=== PATIENT | female | born 1945 | race Two or more races ===

== ENCOUNTER 2020-09-04 16:04 | Emergency (ER) | payer OTHER ==
[~2020-09-04] VITALS: Ht 154.9 cm; Wt 65.8 kg
--- NOTE | 2020-09-04 16:30 | NUR ---
[id number], picked up at [facility], c/o left rib pain s/p fall 1 1/2 weeks ago, 10/10 pain scale. On room air, breathing evenly and unlabored. connected to the monitor and pulse ox. Kept comfortable, will continue to monitor accordingly.
--- NOTE | 2020-09-04 16:45 | NUR ---
IV Access initiated and blood drawned and sent to lab.
[2020-09-04 17:44] LABS: CARBON DIOXIDE 27 mmol/L (21-32); CHLORIDE 106 mmol/L (98-107); CREATININE 0.7 mg/dL (0.6-1.3); GLUCOSE 93 mg/dL (74-106); POTASSIUM 4.1 mmol/L (3.5-5.1); SODIUM SERUM 145 mmol/L (136-145); UREA NITROGEN, BLOOD 18 mg/dL (7-18)
[2020-09-04 18:02] LABS: BASOPHILS % (AUTO) 0.2 % (0.0-2.0); EOSINOPHILS % (AUTO) 0.7 % (0.0-6.0); HEMATOCRIT 42 % (33-45); HEMOGLOBIN 13.4 g/dL (11.5-14.8); LYMPHOCYTES # (AUTO) 0.5 /CMM (0.8-4.8); LYMPHOCYTES % (AUTO) 5.1 % (20.0-44.0); MEAN CORPUSCULAR HGB CONC 32 g/dl (31.0-36.0); MEAN CORPUSCULAR VOLUME 95 fL (82-100); MONOCYTES # (AUTO) 0.6 /CMM (0.1-1.30); MONOCYTES % (AUTO) 5.8 % (2.0-12.0); NEUTROPHILS # (AUTO) 8.8 /CMM (1.8-8.9); NEUTROPHILS % (AUTO) 88.2 % (43.0-81.0); PLATELET COUNT (AUTO) 232 /CMM (150-450); RED BLOOD CELL COUNT(AUTO) 4.39 MIL/uL (4.0-5.2)
[2020-09-04] MEDS ORDERED: IOHEXOL-350 100 ML VIAL IV ONE (18:47)
[2020-09-04] MEDS ORDERED: IV NS 0.9% 250 ML IV ONE (18:47)
--- NOTE | 2020-09-04 19:50 | NUR ---
wheeled patient to ct accompanied by harley
--- NOTE | 2020-09-04 20:00 | NUR ---
Patient came back from ct
[2020-09-04 21:11] VITALS: BP 121/88
--- NOTE | 2020-09-04 21:11 | NUR ---
Patient discharged to home in stable condition. Written and verbal after care instructions given. Patient verbalizes understanding of instruction.IV removed. Catheter intact and site benign. Pressure and 4x4 applied to site. No bleeding noted.
== END 2020-09-04 21:11 | disposition home or self-care (01) ==
LOC: ER 16:11
DX: R07.81 Pleurodynia (principal); R06.00 Dyspnea, unspecified; I10 Essential (primary) hypertension; J45.909 Unspecified asthma, uncomplicated; Z90.5 Acquired absence of kidney; Z98.890 Other specified postprocedural states; Z88.6 Allergy status to analgesic agent
CPT/HCPCS: 36415; 71045; 71275; 80048; 80307; 80320; 84484; 85025; 85378; 93005 ×2; 99284; J7050; Q9967; G0480

== ENCOUNTER 2021-11-07 09:18 | Emergency (ER) | payer OTHER ==
[~2021-11-07] VITALS: Ht 152.4 cm; Wt 58.5 kg
--- NOTE | 2021-11-07 09:21 | NUR ---
TO ER BED 3, ORALIA FROM THE STREET C/O SUBSTERNAL CHEST PAIN THAT RADIATES TO NECK AND L ARM P/S 07/08, NO RELIEF FROM NITRO, WAS JUST DC FROM [facility] SAME REASON, AAOX3, BREATHING EVEN AND NON LABORED, CONNECTED TO MONITOR, AWAITING MD ORDERS
[2021-11-07 10:24] LABS: BASOPHILS % (AUTO) 0.4 % (0.0-2.0); EOSINOPHILS % (AUTO) 1.8 % (0.0-6.0); HEMATOCRIT 39 % (33-45); HEMOGLOBIN 12.6 g/dL (11.5-14.8); LYMPHOCYTES # (AUTO) 1.5 K/uL (0.8-4.8); LYMPHOCYTES % (AUTO) 19.1 % (20.0-44.0); MEAN CORPUSCULAR HGB CONC 32 g/dl (31.0-36.0); MEAN CORPUSCULAR VOLUME 89 fL (82-100); MONOCYTES # (AUTO) 0.6 K/uL (0.1-1.30); MONOCYTES % (AUTO) 7.5 % (2.0-12.0); NEUTROPHILS # (AUTO) 5.4 K/uL (1.8-8.9); NEUTROPHILS % (AUTO) 71.2 % (43.0-81.0); PLATELET COUNT (AUTO) 208 K/uL (150-450); RED BLOOD CELL COUNT(AUTO) 4.39 MIL/uL (4.0-5.2); WHITE BLOOD COUNT (AUTO) 7.7 K/uL (4.3-11.0)
[2021-11-07] MEDS ORDERED: ONDANSETRON HCL/PF 4 MG/2 ML VIAL ONE (10:26)
[2021-11-07] MEDS ORDERED: MORPHINE SULFATE INJ 2 MG/ML DISP.SYRIN ONE (10:27)
[2021-11-07] MEDS ORDERED: ONDANSETRON HCL/PF 4 MG/2 ML VIAL IV ONE (10:30)
[2021-11-07] MEDS ORDERED: MORPHINE SULFATE INJ 2 MG/ML DISP.SYRIN IV ONE (10:30)
[2021-11-07 10:41] LABS: CALCIUM, SERUM 9.4 mg/dL (8.5-10.1); CARBON DIOXIDE 24 mmol/L (21-32); CHLORIDE 106 mmol/L (98-107); CREATININE 0.8 mg/dL (0.6-1.3); GLUCOSE 90 mg/dL (74-106); POTASSIUM 3.9 mmol/L (3.5-5.1); SODIUM SERUM 139 mmol/L (136-145); UREA NITROGEN, BLOOD 23 mg/dL (7-18)
--- NOTE | 2021-11-07 11:25 | NUR ---
COVID SWAB DONE AND SENT TO LAB
[2021-11-07] MEDS ORDERED: ESCI5TAB PO (11:30)
[2021-11-07] MEDS ORDERED: GABA-532 PO (11:30)
[2021-11-07] MEDS ORDERED: ZOLP5TAB8 PO (11:30)
[2021-11-07] MEDS ORDERED: AMLO-212 PO (11:30)
[2021-11-07] MEDS ORDERED: BACL10TA PO (11:30)
[2021-11-07] MEDS ORDERED: NITR0.4T48 PO (11:30)
[2021-11-07] MEDS ORDERED: DOCU100C36 PO (11:30)
[2021-11-07] MEDS ORDERED: ATOR10TA PO (11:30)
[2021-11-07] MEDS ORDERED: TRAM50TA2 PO (11:30)
--- NOTE | 2021-11-07 12:33 | NUR ---
CHIDI, CM [phone].
--- NOTE | 2021-11-07 13:23 | NUR ---
CHIDI [phone] FAXED OVER CLINICALS FOR ER .
--- NOTE | 2021-11-07 14:04 | NUR ---
CALLED [employer].
--- NOTE | 2021-11-07 14:53 | NUR ---
Pt. expressed she wants to go to a [facility] and is willing to pay for it. SW reached out to Rubi for placement and left VM [[phone]]. Will update once she calls back.
[2021-11-07] MEDS ORDERED: HYDROCODONE/APAP 5/325MG TABLET PO ONE (15:00)
[2021-11-07] MEDS ORDERED: HYDROCODONE/APAP 5/325MG TABLET ONE (15:07)
--- NOTE | 2021-11-07 15:16 | NUR ---
Found placement for Pt. Mack from [facility] [[phone]] will call back with information and ETA.
--- NOTE | 2021-11-07 15:54 | NUR ---
Pt. accepted to [facility] [[address] [place] [address], Mia Post Partum Nurse]. ETA: [phone]
--- NOTE | 2021-11-07 18:13 | NUR ---
IV removed. Catheter intact and site benign. Pressure and 4x4 applied to site. No bleeding noted.
--- NOTE | 2021-11-07 18:13 | NUR ---
Patient discharged in stable condition. Written and verbal after care instructions given. Patient verbalizes understanding of instruction.
[2021-11-07 18:18] VITALS: BP 127/79
== END 2021-11-07 18:18 ==
LOC: ER 09:26
DX: R07.9 Chest pain, unspecified (principal); R00.0 Tachycardia, unspecified; F17.210 Nicotine dependence, cigarettes, uncomplicated; I25.10 Atherosclerotic heart disease of native coronary artery without angina pectoris; Z95.5 Presence of coronary angioplasty implant and graft; J45.909 Unspecified asthma, uncomplicated; I10 Essential (primary) hypertension; Z20.822 Contact with and (suspected) exposure to COVID-19
CPT/HCPCS: 36415; 71045; 80048; 84484 ×2; 85025; 87426; 93005; 96374; 96375; 99285; J2270; J2405; C9803

== ENCOUNTER 2022-03-13 00:14 | Inpatient (IN) | payer OTHER ==
[~2022-03-13] VITALS: Ht 152.4 cm; Wt 61.7 kg
[~2022-03-13 00:14] MED LIST: AMLO-212 PO; ATOR10TA PO; BACL10TA PO; DOCU100C36 PO; ESCI5TAB PO; GABA-532 PO; NITR0.4T48 PO; TRAM50TA2 PO; ZOLP5TAB8 PO
[2022-03-13 00:54] LABS: BILIRUBIN,URINE NEGATIVE (NEGATIVE); COLOR,URINE YELLOW (YELLOW); LEUKOCYTE ESTERASE ,URINE SMALL (NEGATIVE); NITRITE, URINE NEGATIVE (NEGATIVE); PROTEIN,URINE 30 mg/dl (NEGATIVE); UGLUCOSE NEGATIVE (NEGATIVE); UROBILINOGEN,URINE 0.2 EU/dL (0.2)
[2022-03-13 01:10] LABS: BASOPHILS % (AUTO) 0.5 % (0.0-2.0); EOSINOPHILS % (AUTO) 1.6 % (0.0-6.0); HEMATOCRIT 37 % (33-45); HEMOGLOBIN 11.9 g/dL (11.5-14.8); LYMPHOCYTES # (AUTO) 1.9 K/uL (0.8-4.8); MEAN CORPUSCULAR HGB CONC 32 g/dl (31.0-36.0); MEAN CORPUSCULAR VOLUME 91 fL (82-100); MONOCYTES # (AUTO) 0.8 K/uL (0.1-1.30); MONOCYTES % (AUTO) 9.6 % (2.0-12.0); NEUTROPHILS # (AUTO) 5.6 K/uL (1.8-8.9); NEUTROPHILS % (AUTO) 66.3 % (43.0-81.0); PLATELET COUNT (AUTO) 205 K/uL (150-450); RED BLOOD CELL COUNT(AUTO) 4.02 MIL/uL (4.0-5.2); WHITE BLOOD COUNT (AUTO) 8.5 K/uL (4.3-11.0)
[2022-03-13 01:22] LABS: CARBON DIOXIDE 29 mmol/L (21-32); CHLORIDE 107 mmol/L (98-107); CREATININE 0.8 mg/dL (0.6-1.3); GLUCOSE 93 mg/dL (74-106); SODIUM SERUM 142 mmol/L (136-145); UREA NITROGEN, BLOOD 22 mg/dL (7-18)
[2022-03-13 01:30] LABS: ALANINE AMINOTRANSFERASE 17 U/L (12-78); ALBUMIN 3.9 g/dL (3.4-5.0); ALKALINE PHOSPHATASE 96 U/L (46-116); ASPARTATE AMINOTRANSFERASE 15 U/L (15-37); BILIRUBIN,DIRECT 0.1 mg/dL (0.0-0.2); BILIRUBIN,TOTAL 0.2 mg/dL (0.2-1.0); TOTAL PROTEIN, SERUM 7.8 g/dL (6.4-8.2)
[2022-03-13 01:34] LABS: ACETAMINOPHEN 0 ug/ml (10-30); ALCOHOL, BLOOD < 3 mg/dL (0-0)
[2022-03-13] MEDS ORDERED: MORPHINE SULFATE IR 15 MG TABLET ONE (01:51)
[2022-03-13] MEDS ORDERED: MORPHINE SULFATE IR 15 MG TABLET PO ONE (02:00)
[2022-03-13] MEDS ORDERED: CEPHALEXIN MONOHYDRATE 500 MG CAPSULE PO ONE ×2 (04:00→04:10)
[2022-03-13 07:27] LABS: BACTERIA,URINE Few /HPF (None Seen)
--- NOTE | 2022-03-13 08:18 | NUR ---
Note undone in EDM - 03/13/22 at 0822 by SPEEDY THE PATIENT IS RECEIVED IN ER #[id number]. THE PATIENT IS ALERT AND ORIENTED X4. DENIES PAIN. IN ROOM AIR AND DENIES SOB. RESPIRATION REGULAR AND UNLABORED. THE PATIENT IS SERVED BREAKFAST. VERO FOOD WELL.
--- NOTE | 2022-03-13 08:22 | NUR ---
THE PATIENT IS RECEIVED IN ER #15. THE PATIENT IS ALERT AND ORIENTED X3. DENIES PAIN. IN ROOM AIR AND DENIES SOB. RESPIRATION REGULAR AND UNLABORED. THE PATIENT IS SERVED BREAKFAST. VERO FOOD WELL.
--- NOTE | 2022-03-13 08:33 | NUR ---
TYLENOL 650 MG PO ONCE PER LAW. THE ORDER IS READ BACK, VERIFIED. NOTED AND CARRIED OUT.
[2022-03-13] MEDS ORDERED: ACETAMINOPHEN 325 MG TABLET ONE (08:35)
--- NOTE | 2022-03-13 08:39 | NUR ---
THE PATIENT IS ADMINISTERED TYLENOL 650 MG PO FOR HEADACHE 12/06. WILL CONTINUE TO MONITOR THE PATIENT.
[2022-03-13] MEDS ORDERED: ACETAMINOPHEN 325 MG TABLET PO ONE (09:00)
--- NOTE | 2022-03-13 10:30 | NUR ---
SS consult: SS Consult requested for SI,HI, homelessness. The pt. is a 76-year-old female patient who came into ED due to: suicidal ideation & homicidal ideation per EMR. Upon SS consult, the pt. is Alert & Oriented x 4 and makes poor eye contact. The pt. appears disheveled with depressed mood & flat affect. Pt.'s speech is clear. Per pt. she states he is having thoughts of suicide with plan to "run in front of a moving train". Pt. states she has thoughts of HI. Per pt. she has auditory hallucinations telling her to hurt her children. Per pt. her children are all mostly in [place]. SW explored pt.'s living situation. Patient states she is experiencing homelessness for the past 5 years and she lives in an encampment in [facility] with other people and her needs are met there. Pt. stated, "they let me sleep in a tent and share food with me". SW provided resources for homelessness and pt. accepted them. SW explored pt.'s mental health Hx. Patient stated that she has been diagnosed with Schizophrenia. Per pt. she was prescribed some medication for her mental health but has been non-complaint with taking it. SW provided mental health resources. SW explored pt.'s drug & ETOH use. Pt. denies drug or alcohol use. Per pt. she is ambulatory and independent with all his ADL's. SW explored pt.'s support system. Pt. states he has no support system. Plan: Pt. will be assessed by soft work wrapper layer and examiner, Alina Goodwin [phone]. Pt. will be referred pt. psychiatric hospital for inpatient psychiatric treatment or possible admission to [facility]. Pt. was provided with mental health & homeless resources and pt. accepted them. Pt. signed homeless waiver and it was placed in the chart. Year-round shelters: [facility] [place] [address] [place], [place] [id number] ; [facility] [place] [address] [place] [address]; [facility] Jgstwpu9638 [facility]. [facility] [address] Hygiene: [facility]: [address] ; [facility] [address] [facility] ; [facility] [address] . Food Resources: [facility] at [facility]- [address] [place]; Meet Each Need with Dignity ([facility]) [address] [place]; [facility] [address] [facility]; [facility] [address] [facility]. Mental Health resources provided: [facility] [address] [place], [place] [address] ; [facility] [address] [facility] [address], [place], [place] [id number] ; [facility] [address] [facility] [place], [place] [id number] ; [facility] [place], [place] [address] Healthcare Clinics: [facility] [address] [facility], [address] [place]. [place] ; [facility] [address] [place] [address]; [facility] [place] [address] [facility]. [place] [phone]) [phone] Counseling--Outpatient [facility] [address], [address] [place], [place] [id number] (Specializes in in-depth psychotherapy for emotional distress: anxiety, depression, interpersonal conflicts, life transitions, childhood abuse) [facility] [address] [place], [place] [address] (Assist with solving problem marital difficulties, separation & divorce, aging parents, & grief, chronic & terminal illness) [facility] [address] [place], [place] [phone] (Deal with loss & grief, anxiety, marital difficulties) Homebound/Mental Health Services [address] [facility], [address] [place] [address] (Provide in-home mental services to people who are incapable of leaving their homes) [facility] Needs of the Elderly [facility] [address] [place] [address] [facility] [address] [place] [address] PSYCHIATRIC OUTPATIENT SERVICES [facility] Partial Hospitalization and Intensive Outpatient Program (Managed Care and Torres Only)[address] [facility] [phone] [facility] Partial Hospitalization and Outpatient [id number] [place], [place] [phone] [facility] Mental Health [place] Jew[address] [facility] [address] [place], [place] [phone] [facility] Partial Hospitalization and Outpatient Jzudewq49334 [place], [phone] Substance Abuse resources provided included: [facility] Substance Abuse Self-Helpline ([facility]) ; [facility] [address] [facility] [place]. [place] [address] ; [facility] [address] [facility] [address] ; [facility] [address] [address] ; [facility] [address] [facility] [address] ; [facility] [address] [facility] [address] ; [facility] [address] [facility] [address] ; [facility] Substance Abuse Helpline(SAS)-[facility] ; [facility] ; [facility]; [facility] [place]; [facility] [place]; [facility] [place]; [facility] [place]; [facility] [place]; [facility], [facility]. [place]; Alcoholics Anonymous -SFV; Hv-Gmkh-Zwaplty ; Marijuana Anonymous -[facility]V; Narcotics Anonymous www.na.org;
--- NOTE | 2022-03-13 11:14 | NUR ---
Plan: Pt. will be assessed by angle roll operator, Alina Goodwin [phone]. Pt. will be referred pt. psychiatric hospital for inpatient psychiatric treatment if needed. Pt. was provided with mental health & homeless resources and pt. accepted them. Pt. signed homeless waiver and it was placed in the chart.
--- NOTE | 2022-03-13 11:15 | NUR ---
Esau Note: JONATAN called the patient's son, Floyd [phone] who per pt. resides in [place], [place] to warn him that the pt. expressed she has been having thoughts of hurting her children and having auditory hallucinations telling her to hurt her children. Call went to [employer] and JONATAN left JONATAN call back number and brief message. Plan: Pt. will possibly be placed on a 5150 LPS hold fro psychiatric treatment. JONATAN will follow up as needed.
[2022-03-13] MEDS ORDERED: ISOS30TA86 PO (12:51)
[2022-03-13] MEDS ORDERED: LEVO50TA8 PO (12:51)
[2022-03-13] MEDS ORDERED: MIRT-90 PO (12:51)
[2022-03-13] MEDS ORDERED: OLAN2.5T3 PO (12:51)
[2022-03-13] MEDS ORDERED: CLOP75TA15 PO (12:51)
[2022-03-13] MEDS ORDERED: CARV3.122 PO (12:51)
[2022-03-13] MEDS ORDERED: ARIP5TAB10 PO (12:51)
--- NOTE | 2022-03-13 14:02 | NUR ---
GOT BED 219
--- NOTE | 2022-03-13 14:26 | NUR ---
REPORT GIVEN TO NURSE LIZ FOR ELVER
--- NOTE | 2022-03-13 16:15 | NUR ---
ADMITTED A 76 Y/O FEMALE FROM FROM [facility] ON 5150 HOLD FOR DTO ,DTS, PER 5150 HOLD PATIENT HAS PSYCHOTIC EPISODE EVIDENCE BY AUDITORY HALLUCINATIONS ,PATIENT EXPRESSED SUICIDAL IDEATION WITH INTENT TO KILL HERSELF AND HER CHILDREN ,SHE HAS PLAN TO THROW HERSELF IN FRONT OF TRAIN AND HAD THIS PLAN FOR LAST 3 MONTHS AGO SHE EXPRESSED THAT VOICES ARE COMMANDING HER TO HARM SELF AND OTHERS PATIENT IS . PATIENT ADMITTING DX SCHIZOPHRENIA AND MEDICAL DIAGNOSIS OF HTN ,HX OF STROKE . UPON FACE TO FACE EVALUATION, PATIENT APPEARED ALERT AND ORIENTED X 3,MOOD DEPRESSED ,MUMBLING TO SELF ,HEARING VOICES TELLING HER TO KILL HERSELF ,PATIENT APPEARANCE DISHEVELED AND UNKEMPT ,PATIENT TEARFUL AND STATED "I HAVE BEEN DEPRESSED AND WANTED TO KILL MYSELF". PATIENT UNABLE TO SIGN PAPER WORKS DUE TO PARANOIA . NO SOB, NO ACUTE DISTRESS, BREATHING EVEN AND UNLABORED, NO S/S OF PAIN AND DISCOMFORT. PATIENT IS UNDER THE CARE OF DR. ROMERO AND DR. SALEH . BELONGINGS COLLECTED FOR CONTRABAND CHECK. NOTIFIED DR. ROMERO TO RECONCILE MEDICATION. NOTIFIED RESPONSIBLE DEMOCRAT OF THE ADMISSION. PATIENT RIGHT HAND BOOK AND ORIGINAL ADVISEMENT GIVEN AND EXPLAIN TO PATIENT ABLE TO VERBALIZE UNDERSTANDING . KEPT CLEAN, DRY AND COMFORTABLE. WILL CONTINUE TO MONITOR Q15 MINUTES FOR SAFETY. Addendum: 03/13/22 at 1859 by JOHANA BIRCH HARLEEN MARTIN DNP NOTIFIED OF ADMISSION
[2022-03-13] MEDS ORDERED: BLOOD SUGAR DIAGNOSTIC 1 EACH STRIP IN ONE (16:30)
[2022-03-13] MEDS ORDERED: MAGNESIUM HYDROXIDE 30 ML UDC PO PRN (16:30)
[2022-03-13] MEDS ORDERED: MAG HYDROX/AL HYDROX/SIMETH 30 ML UDC PO PRN (16:30)
[2022-03-13 17:00] VITALS: BP 150/64
[2022-03-13 18:05] VITALS: BP 150/64
--- NOTE | 2022-03-13 19:48 | NUR ---
GPS RN OPENING NOTES: RECEIVED PATIENT IN ROOM LAYING ON BED, AWAKE, A/O X2-3. APPEARS DEPRESSED, FLAT AFFECT, PASSIVE, ANXIOUS, WITHDRAWN, DISORGANIZED. DENIES PAIN, DENIES SI AT THIS TIME. V/S WNL. NO S/S OF DISTRESS. RESPIRATION EVEN AND UNLABORED WITH EQUAL RISE AND FALL OF THE CHEST, ON ROOM AIR. OFFERED FLUID AND SNACKS TOLERATED. BED IN LOW LOCKED POSITION, CALL GARCIA WITHIN REACH. WILL CONTINUE TO MONITOR Q15 FOR MOOD, SAFETY AND BEHAVIOR.
[2022-03-13 20:00] VITALS: BP 137/63
[2022-03-13] MEDS: LORAZEPAM 1 MG TABLET PO PRN (22:00)
--- NOTE | 2022-03-13 22:06 | NUR ---
GPS RN NOTES: Patient requested for Ativan d/t anxiety. Ativan 1mg given PO at 2200 with a witness/another nurse. Unable to scan patient arm band. Requested a new arm band from ER admitting but still will not scan.
[2022-03-13] MEDS: TEMAZEPAM 7.5 MG CAPSULE PO PRN (22:21)
--- NOTE | 2022-03-13 22:24 | NUR ---
GPS RN NOTES: PATIENT REQUESTED FOR SLEEP MEDICATION. RESTORIL 7.5MG/2CAPS GIVEN PO AT 2221. WILL CONTINUE TO MONITOR.
[2022-03-14 07:18] LABS: CHOLESTEROL 154 mg/dL (<200); HDL CHOLESTEROL 50 mg/dL (40-60); LDL 87 mg/dL (0-99); TRIGLYCERIDES 62 mg/dL (30-150)
[2022-03-14 07:19] LABS: ALANINE AMINOTRANSFERASE 12 U/L (12-78); ALBUMIN 3.2 g/dL (3.4-5.0); ALKALINE PHOSPHATASE 85 U/L (46-116); ASPARTATE AMINOTRANSFERASE 11 U/L (15-37); BILIRUBIN,TOTAL 0.4 mg/dL (0.2-1.0); CARBON DIOXIDE 26 mmol/L (21-32); CHLORIDE 106 mmol/L (98-107); CREATININE 0.7 mg/dL (0.6-1.3); GLUCOSE 92 mg/dL (74-106); POTASSIUM 4.2 mmol/L (3.5-5.1); SODIUM SERUM 139 mmol/L (136-145); TOTAL PROTEIN, SERUM 6.8 g/dL (6.4-8.2); UREA NITROGEN, BLOOD 16 mg/dL (7-18)
[2022-03-14 08:00] VITALS: BP 146/71
--- NOTE | 2022-03-14 10:15 | NUR ---
JONATAN Initial Discharge Plan: Patient currently resides at [place] [address]; ([phone]). Patient unsure if she will return back home. JONATAN attempted to contact patient's son Floyd ([phone]) to gather collateral and discuss treatment plan. JONATAN will work with the MD, treatment team, and family to help coordinate appropriate discharge.
--- NOTE | 2022-03-14 10:15 | NUR ---
JONATAN Clinical Note: Patient placed on a 5150 hold for danger to others and danger to self. Patient was brought to the hospital because pt had suicidal thoughts and a plan to throw herself infront of a train. Patient had also thoughts of harming her children.
--- NOTE | 2022-03-14 10:16 | NUR ---
JONATAN Family Contact: SW attempted to contact patient's son Floyd ([phone]) to gather collateral and discuss treatment plan, however, he was unavailable and this ad writer left a voicemail.
--- NOTE | 2022-03-14 10:17 | NUR ---
Social Work Note/Substance Abuse Intervention: Patient was provided with a brief substance abuse intervention and referred to [facility] ([phone]), [facility] ([phone]), and [facility] ([phone]) for smoking cigarettes.
[2022-03-14] MEDS: DIVALPROEX SODIUM 250 MG TABLET.DR PO SCH ×2 (11:34→20:44)
[2022-03-14] MEDS: OLANZAPINE 2.5 MG TABLET PO SCH ×2 (11:34→17:40)
--- NOTE | 2022-03-14 11:42 | NUR ---
RN-NOTES DR. HOLLY (COVERING FOR DR. FLORIAN) MADE AWARE OF PATIENT'S ADMISSION AND THAT HE WILL RECONCILE PATIENT'S MEDICATIONS.
--- NOTE | 2022-03-14 13:16 | NUR ---
UR Note: SW spoke with pt's upper caser Cindi ([phone]) (F:[phone]) who requires daily clinicals. Auth #[id number] Cindi shared some information that pt was at a [facility] called [facility] back in November 2021. Frank Admin ([phone])
--- NOTE | 2022-03-14 13:17 | NUR ---
SW Note: Cindi child welfare caseworker from [place] ([phone]) shared some information that pt was at a [facility] back in November 2021. Frank Admin ([phone]). SW attempted to contact and left a voicemail to gather information.
--- NOTE | 2022-03-14 14:06 | NUR ---
Facility Contact: JONATAN was able to locate pt's current living condition. Pt currently resides at [facility] located at [address] [place] [address]; ([phone]). JONATAN spoke with Frank the admin who stated that pt has been living with there and she is welcomed back upon discharge. He reports that pt goes in and out of hospitals. He reported that pt does not have any family members or a son. He stated that pt reports the same story to every hospital.
[2022-03-14] MEDS: LORAZEPAM 1 MG TABLET PO PRN ×2 (14:51→20:59)
--- NOTE | 2022-03-14 14:54 | NUR ---
RN-NOTES PATIENT REQUESTING ATIVAN FOR ANXIETY. ATIVAN 1MG P.O GIVEN PRN ORDER. WILL CONT. MONITORING FOR SAFETY AND BEHAVIOR.
--- NOTE | 2022-03-14 15:05 | NUR ---
UR Note: JONATAN spoke with pt's disease case manager Cindi ([phone]) (F:[phone]) who requires daily clinicals. Auth #[id number]. JONATAN faxed clinicals. Addendum: 03/15/22 at 1054 by JONATAN WU Authorized for 03/14
--- NOTE | 2022-03-14 15:55 | NUR ---
RN-NOTES PATIENT LYING IN BED AWAKE,ALERT X2 CALM,NO ACUTE DISTRESS NOTED.
[2022-03-14 16:00] VITALS: BP 130/76
[2022-03-14] MEDS: ATORVASTATIN 10 MG TABLET PO SCH (17:40)
[2022-03-14] MEDS: CARVEDILOL 3.125 MG TABLET PO SCH (17:40)
--- NOTE | 2022-03-14 18:10 | NUR ---
RN-NOTES PATIENT ISOLATIVE IN THE ROOM,ENCOURAGED TO PARTICIPATES IN THE GROUP ACTIVITY BUT PREFERS TO STAY IN THE ROOM LAYING IN BED ,A/O X2,QUIET,GUARDED,NOTED WITH EASILY ANGRY BEHAVIOR,NO ACUTE DISTRESS NOTED.COMPLIANT WITH MEDICATIONS.PATIENT IS AMBULATORY STEADY GAIT. ALL NEEDS ATTENDED AND ANTICIPATED. WILL CONT. MONITORING FOR SAFETY AND BEHAVIOR. WILL ENDORSE TO INCOMING NURSE FOR CONTINUITY OF CARE.
--- NOTE | 2022-03-14 19:46 | NUR ---
GPS RN OPENING NOTES: RECEIVED PATIENT IN ROOM LAYING ON BED, AWAKE, A/O X2-3. APPEARS DEPRESSED, FLAT AFFECT, LABILE, GUARDED, WITHDRAWN, ISOLATIVE, DISORGANIZED, NOT INTERACTING WITH PEERS. DENIES PAIN, DENIES SI AT THIS TIME. NO S/S OF DISTRESS. RESPIRATION EVEN AND UNLABORED WITH EQUAL RISE AND FALL OF THE CHEST, ON ROOM AIR. OFFERED FLUID AND SNACKS TOLERATED. BED IN LOW LOCKED POSITION, CALL GARCIA WITHIN REACH. WILL CONTINUE TO MONITOR Q15 FOR MOOD, SAFETY AND BEHAVIOR.
[2022-03-14 20:00] VITALS: BP 128/72
--- NOTE | 2022-03-14 21:02 | NUR ---
GPS RN NOTES: PATIENT REQUESTED FOR ANXIETY MEDICATION. ATIVAN 1MG GIVEN PO AT 2058 PRN. WILL CONTINUE TO MONITOR.
[2022-03-14] MEDS: TEMAZEPAM 7.5 MG CAPSULE PO PRN (22:46)
--- NOTE | 2022-03-14 22:52 | NUR ---
GPS RN NOTES: PATIENT REQUESTED FOR SLEEP MEDICATION. RESTORIL 7.5MG/2CAPS GIVEN PO AT 2246. WILL CONTINUE TO MONITOR.
--- NOTE | 2022-03-15 06:50 | NUR ---
GPS RN CLOSING NOTES: PATIENT IS CURRENTLY SLEEPING IN BED. PATIENT SLEPT 7HRS THIS SHIFT. NO S/S OF DISTRESS. RESPIRATION EVEN AND UNLABORED WITH EQUAL RISE AND FALL OF THE CHEST, ON ROOM AIR. ALL PATIENT CARE NEEDS HAVE BEEN MET ANTICIPATED. WILL CONTINUE TO MONITOR Q15 FOR SAFETY, MOOD AND BEHAVIOR AND ENDORSE TO AM SHIFT.
[2022-03-15 08:00] VITALS: BP 130/75
[2022-03-15] MEDS ORDERED: ARIPIPRAZOLE 5 MG TABLET PO SCH (09:00)
[2022-03-15] MEDS: OLANZAPINE 2.5 MG TABLET PO SCH ×2 (09:15→17:12)
[2022-03-15] MEDS: DIVALPROEX SODIUM 250 MG TABLET.DR PO SCH ×2 (09:15→20:58)
[2022-03-15] MEDS: ESCITALOPRAM OXALATE (10 MG) 10 MG TABLET PO SCH (09:15)
[2022-03-15] MEDS: ISOSORBIDE MONONITRATE (30MG) 30 MG TAB.SR.24H PO SCH (09:15)
[2022-03-15] MEDS: LEVOTHYROXINE SODIUM 50 MCG TABLET PO SCH (09:15)
[2022-03-15] MEDS: CLOPIDOGREL BISULFATE 75 MG TABLET PO SCH (09:15)
[2022-03-15] MEDS: AMLODIPINE BESYLATE 5 MG TABLET PO SCH (09:16)
[2022-03-15] MEDS: CARVEDILOL 3.125 MG TABLET PO SCH ×2 (09:16→17:11)
--- NOTE | 2022-03-15 10:53 | NUR ---
UR Note: JONATAN spoke with pt's bilingual case manager Cindi ([phone]) (F:[phone]) who requires daily clinicals. Auth #[id number]. JONATAN faxed clinicals.
--- NOTE | 2022-03-15 13:04 | NUR ---
UR Note: JOANTAN spoke with pt's manager case Cindi ([phone]) (F:[phone]) who requires daily clinicals. Auth #[id number]. Cindi stated pt is authorized for 03/15 and the next clinical review will be due on 03/19 as they won't be in the office on Sunday 03/18.
--- NOTE | 2022-03-15 14:20 | NUR ---
RN Notes: Pt. is in room awake, guarded upon approached. No distress and no agitation noted. Will continue to monitor for safety.
[2022-03-15 16:00] VITALS: BP 119/73
--- NOTE | 2022-03-15 16:30 | NUR ---
GPS RN NOTES RECEIVED REPORT AND ASSUMED CARE FOR THIS PATIENT WHO IS LAYING IN BED IN NO APPARENT DISTRESS AT THIS TIME. WILL CONTINUE TO MONITOR.
[2022-03-15] MEDS: ATORVASTATIN 10 MG TABLET PO SCH (17:11)
[2022-03-15] MEDS: LORAZEPAM 1 MG TABLET PO PRN (18:37)
--- NOTE | 2022-03-15 18:39 | NUR ---
GPS RN NOTES PATIENT COMPLAINT OF ANXIETY AND REQUESTED MEDICATION. 1 MG ATIVAN PRN PO ADMINISTERED ORDERED. WILL CONTINUE TO MONITOR FOR S/S OF ANXIETY.
--- NOTE | 2022-03-15 19:00 | NUR ---
GPS RN CLOSING NOTES PATIENT ALERT AND ORIENTED, NO COMPLAINTS OF PAIN OR DISCOMFORT AT THIS TIME, LAYING IN BED. ALL NEEDS MET. REPORT GIVEN TO SAFETY DEPOSIT SUPERVISOR FOR EL[facility].
--- NOTE | 2022-03-15 19:48 | NUR ---
GPS RN OPENING NOTES: RECEIVED PATIENT LAYING ON BED, AWAKE, A/O X3. APPROPRIATE AFFECT, LABILE, GUARDED, WITHDRAWN, ANXIOUS, COOPERATIVE. ENCOURAGED TO VERBALIZE FEELINGS. DENIES PAIN, DENIES SI AT THIS TIME. NO S/S OF DISTRESS. RESPIRATION EVEN AND UNLABORED WITH EQUAL RISE AND FALL OF THE CHEST, ON ROOM AIR. OFFERED FLUID AND SNACKS TOLERATED. BED IN LOW LOCKED POSITION, CALL GARCIA WITHIN REACH. WILL CONTINUE TO MONITOR Q15 FOR MOOD, SAFETY AND BEHAVIOR.
[2022-03-15 20:00] VITALS: BP 133/75
[2022-03-15] MEDS: TEMAZEPAM 7.5 MG CAPSULE PO PRN (22:18)
--- NOTE | 2022-03-15 22:21 | NUR ---
GPS RN NOTES: PATIENT REQUESTED FOR SLEEP MEDICATION. RESTORIL 7.5MG/2CAPS GIVEN PO AT 2218. WILL CONTINUE TO MONITOR.
[2022-03-16] MEDS: LORAZEPAM 1 MG TABLET PO PRN ×3 (04:13→21:41)
--- NOTE | 2022-03-16 04:16 | NUR ---
GPS RN NOTES: PATIENT REQUESTED FOR ANXIETY MEDICATION. ATIVAN 1MG GIVEN PO AT 0413 PRN. WILL CONTINUE TO MONITOR.
--- NOTE | 2022-03-16 06:41 | NUR ---
GPS RN CLOSING NOTES: PATIENT IS CURRENTLY SLEEPING IN BED. PATIENT SLEPT 8HRS THIS SHIFT. NO S/S OF DISTRESS. RESPIRATION EVEN AND UNLABORED WITH EQUAL RISE AND FALL OF THE CHEST, ON ROOM AIR. ALL PATIENT CARE NEEDS HAVE BEEN MET ANTICIPATED. WILL CONTINUE TO MONITOR Q15 FOR SAFETY, MOOD AND BEHAVIOR AND ENDORSE TO AM SHIFT.
[2022-03-16] MEDS: LEVOTHYROXINE SODIUM 50 MCG TABLET PO SCH (07:53)
[2022-03-16 08:00] VITALS: BP 124/70
[2022-03-16] MEDS: AMLODIPINE BESYLATE 5 MG TABLET PO SCH (08:09)
[2022-03-16] MEDS: CARVEDILOL 3.125 MG TABLET PO SCH ×2 (08:10→16:20)
[2022-03-16] MEDS: CLOPIDOGREL BISULFATE 75 MG TABLET PO SCH (08:10)
[2022-03-16] MEDS: ESCITALOPRAM OXALATE (10 MG) 10 MG TABLET PO SCH (08:10)
[2022-03-16] MEDS: ISOSORBIDE MONONITRATE (30MG) 30 MG TAB.SR.24H PO SCH (08:10)
[2022-03-16] MEDS: OLANZAPINE 2.5 MG TABLET PO SCH ×2 (08:10→16:19)
[2022-03-16] MEDS: DIVALPROEX SODIUM 250 MG TABLET.DR PO SCH ×2 (08:10→20:11)
[2022-03-16] MEDS: CEPHALEXIN MONOHYDRATE 250 MG CAPSULE PO SCH ×3 (12:08→23:37)
--- NOTE | 2022-03-16 12:11 | NUR ---
RN-NOTES PATIENT REQUESTING ATIVAN FOR ANXIETY. ATIVAN 1MG P.O GIVEN PRN ORDER. WILL CONT. MONITORING FOR SAFETY AND BEHAVIOR.
--- NOTE | 2022-03-16 13:15 | NUR ---
RN-NOTES PATIENT LYING IN BED AWAKE,ALERT X2 CALM ,NO ACUTE DISTRESS NOTED.
[2022-03-16 16:00] VITALS: BP 103/63
[2022-03-16] MEDS: ATORVASTATIN 10 MG TABLET PO SCH (17:05)
--- NOTE | 2022-03-16 18:08 | NUR ---
RN-NOTES PATIENT VISIBLE IN THE UNIT ,A/O X2,QUIET,GUARDED,,NO ACUTE DISTRESS NOTED.COMPLIANT WITH MEDICATIONS.PATIENT IS AMBULATORY STEADY GAIT. ALL NEEDS ATTENDED AND ANTICIPATED. WILL CONT. MONITORING FOR SAFETY AND BEHAVIOR. WILL ENDORSE TO INCOMING NURSE FOR CONTINUITY OF CARE.
[2022-03-16 20:17] VITALS: BP 131/75
--- NOTE | 2022-03-16 21:42 | NUR ---
RN NOTES ADMINISTERED ATIVAN FOR ANXIETY PER PT REQUEST. VS WNL. WILL CONTINUE TO MONITOR.
[2022-03-17] MEDS: ACETAMINOPHEN 325 MG TABLET PO PRN ×2 (03:32→13:08)
[2022-03-17] MEDS: CEPHALEXIN MONOHYDRATE 250 MG CAPSULE PO SCH ×4 (05:26→23:04)
[2022-03-17 08:00] VITALS: BP 144/87
--- NOTE | 2022-03-17 08:10 | NUR ---
RN OPENING NOTES RECEIVED PATIENT IN THE ROOM EATING, A/OX2, STABLE ON ROOM AIR. NO DISTRESS NOTED. NO HALLUCINATIONS REPORTED OR OBSERVED, NO SI REPORTED. ABLE TO ANSWER QUESTIONS APPROPRIATELY. WILL CONTINUE TO MONITOR FOR SAFETY, MOOD AND BEHAVIOR.
[2022-03-17] MEDS: CARVEDILOL 3.125 MG TABLET PO SCH ×2 (08:20→17:07)
[2022-03-17] MEDS: OLANZAPINE 2.5 MG TABLET PO SCH ×2 (08:20→17:07)
[2022-03-17] MEDS: DIVALPROEX SODIUM 250 MG TABLET.DR PO SCH ×2 (08:20→20:59)
[2022-03-17] MEDS: LEVOTHYROXINE SODIUM 50 MCG TABLET PO SCH (08:20)
[2022-03-17] MEDS: ISOSORBIDE MONONITRATE (30MG) 30 MG TAB.SR.24H PO SCH (08:20)
[2022-03-17] MEDS: ESCITALOPRAM OXALATE (10 MG) 10 MG TABLET PO SCH (08:20)
[2022-03-17] MEDS: AMLODIPINE BESYLATE 5 MG TABLET PO SCH (08:21)
[2022-03-17] MEDS: CLOPIDOGREL BISULFATE 75 MG TABLET PO SCH (08:21)
[2022-03-17 16:00] VITALS: BP 108/72
[2022-03-17] MEDS: ATORVASTATIN 10 MG TABLET PO SCH (17:08)
[2022-03-17 20:06] VITALS: BP 129/79
[2022-03-17] MEDS: TEMAZEPAM 7.5 MG CAPSULE PO PRN (23:01)
--- NOTE | 2022-03-17 23:01 | NUR ---
RN NOTES PT REQUESTED SLEEPING MEDICATION. VS WNL. WILL CONTINUE TO MONITOR.
[2022-03-18] MEDS: CEPHALEXIN MONOHYDRATE 250 MG CAPSULE PO SCH ×3 (06:23→17:29)
[2022-03-18 08:00] VITALS: BP 130/83
[2022-03-18] MEDS: LEVOTHYROXINE SODIUM 50 MCG TABLET PO SCH (08:07)
[2022-03-18] MEDS: OLANZAPINE 2.5 MG TABLET PO SCH ×2 (09:14→17:30)
[2022-03-18] MEDS: CLOPIDOGREL BISULFATE 75 MG TABLET PO SCH (09:15)
[2022-03-18] MEDS: DIVALPROEX SODIUM 250 MG TABLET.DR PO SCH ×2 (09:15→21:07)
[2022-03-18] MEDS: ISOSORBIDE MONONITRATE (30MG) 30 MG TAB.SR.24H PO SCH (09:15)
[2022-03-18] MEDS: AMLODIPINE BESYLATE 5 MG TABLET PO SCH (09:15)
[2022-03-18] MEDS: ESCITALOPRAM OXALATE (10 MG) 10 MG TABLET PO SCH (09:16)
[2022-03-18] MEDS: CARVEDILOL 3.125 MG TABLET PO SCH ×2 (09:16→17:25)
--- NOTE | 2022-03-18 09:27 | NUR ---
RN-CO: PATIENT IS PLEASANT, COMPLIANT WITH HER MEDICATIONS, COOPERATIVE TO CARE. SHE DENIED HEARING "VOICES" AT THE TIME OF MY INTERVIEW. I WILL CONTINUE TO MONITOR.
--- NOTE | 2022-03-18 09:55 | NUR ---
UR Note: JONATAN spoke with pt's case picker Cindi ([phone]) (F:[phone]) who requires daily clinicals. Auth #[id number]. JONATAN faxed clinicals.
[2022-03-18] MEDS: ACETAMINOPHEN 325 MG TABLET PO PRN ×2 (12:27→12:33)
[2022-03-18] MEDS: LORAZEPAM 1 MG TABLET PO PRN (15:27)
--- NOTE | 2022-03-18 15:28 | NUR ---
Court Notification: Pt does not have any family to notify for 5250 hearing.
--- NOTE | 2022-03-18 15:29 | NUR ---
RN-CO: Patient requested for ativan due to anxiety as manifested by restlessness.
[2022-03-18 16:00] VITALS: BP 119/70
--- NOTE | 2022-03-18 16:24 | NUR ---
Court Hearing: Patient's court hearing for 5250 was today and it was upheld for GD, danger to others, and self.
[2022-03-18] MEDS: ATORVASTATIN 10 MG TABLET PO SCH (17:24)
--- NOTE | 2022-03-18 19:41 | NUR ---
GPS RN NOTE RECEIVED PATIENT IN BED RESTING A/O X 3. ON ROOM AIR, NO DISTRESS OR SHORTNESS OF BREATH NOTED. PATIENT IS COMPLIANT WITH MEDICATIONS. PATIENT DENIES SUICIDAL AND HOMICIDAL IDEATIONS AT THIS TIME. FALL AND SAFETY MEASURES IN PLACE, BED IN LOWEST AND LOCKED POSITION, CALL LIGHT AND TABLE WITHIN EASY REACH, SIDE RAILS UP X2. WILL CONTINUE TO MONITOR THROUGHOUT THE SHIFT.
[2022-03-18 20:40] VITALS: BP 135/72
[2022-03-18] MEDS: TEMAZEPAM 7.5 MG CAPSULE PO PRN (21:49)
[2022-03-19] MEDS: CEPHALEXIN MONOHYDRATE 250 MG CAPSULE PO SCH ×4 (00:16→17:31)
--- NOTE | 2022-03-19 06:50 | NUR ---
GPS RN CLOSING NOTE PATIENT SLEEPING IN BED BUT EASILY AROUSABLE TO TOUCH AND VOICE, A/O X 3, ABLE TO MAKE NEEDS KNOWN, NO S/S OF PAIN NOTED AT THIS TIME. ON ROOM AIR, NO DISTRESS OR SHORTNESS OF BREATH NOTED. PATIENT IS COMPLIANT WITH MEDICATIONS. ALL DUE MEDS GIVEN MD ORDERED. FALL AND SAFETY MEASURES IN PLACE, BED IN LOWEST AND LOCK POSITION, CALL LIGHT AND TABLE WITHIN EASY REACH, WILL ENDORSE TO AM SHIFT FOR ELVER.
[2022-03-19] MEDS: LEVOTHYROXINE SODIUM 50 MCG TABLET PO SCH (07:30)
[2022-03-19 08:00] VITALS: BP 106/61
[2022-03-19] MEDS: OLANZAPINE 2.5 MG TABLET PO SCH ×2 (09:06→17:30)
[2022-03-19] MEDS: ISOSORBIDE MONONITRATE (30MG) 30 MG TAB.SR.24H PO SCH (09:07)
[2022-03-19] MEDS: CLOPIDOGREL BISULFATE 75 MG TABLET PO SCH (09:08)
[2022-03-19] MEDS: CARVEDILOL 3.125 MG TABLET PO SCH ×2 (09:08→17:30)
[2022-03-19] MEDS: DIVALPROEX SODIUM 250 MG TABLET.DR PO SCH ×3 (09:08→17:30)
[2022-03-19] MEDS: ESCITALOPRAM OXALATE (10 MG) 10 MG TABLET PO SCH (09:08)
[2022-03-19] MEDS: AMLODIPINE BESYLATE 5 MG TABLET PO SCH (09:08)
--- NOTE | 2022-03-19 10:58 | NUR ---
Facility Contact: JONATAN spoke with Frank kerr from pt's longterm ([phone]) who stated pt is welcomed back tomorrow 03/20.
--- NOTE | 2022-03-19 11:01 | NUR ---
EARLY DISCHARGE ENTRY 03/21/2022 [facility]: Patient resides at [facility] located at [address] [place] [address]; ([phone]). Please schedule taxi transportation at 1PM. Patient does not have any supportive contact at this time. Frank kerr from [facility] ([phone]) who stated pt is welcomed back. Pt denies suicidal or homicidal ideation. Pt denies visual/auditory hallucinations. Pt will follow up with (Base Draw Operator) Dr. Lisa Crowder located at [address] [facility], [place] [address]; and (Psychiatrist) Dr. Sea Martinez located [address] [place] [address] at [facility]. Patient presents with euthymic mood and congruent affect.
--- NOTE | 2022-03-19 11:03 | NUR ---
UR Note: JONATAN spoke with pt's hospice case manager Cindi ([phone]) (F:[phone]) who requires daily clinicals. Auth #[id number]. JONATAN faxed clinicals.
--- NOTE | 2022-03-19 11:05 | NUR ---
JONATAN Note: SW spoke with pt regarding her discharge and she wants to return back to her nursing home.
--- NOTE | 2022-03-19 11:51 | NUR ---
SW Facility contact: SW spoke with Frank kerr from pt's [facility] (F:[phone], (P:[phone]) and faxed pt's updated clinicals.
[2022-03-19 16:00] VITALS: BP 114/56
--- NOTE | 2022-03-19 16:14 | NUR ---
UR Note: SW spoke with pt's case management assistant Cindi ([phone]) (F:[phone]) who requires daily clinicals. Auth #[id number]. SW left a voicemail that pt will be discharged 03/20 back to her Detention.
[2022-03-19] MEDS: LORAZEPAM 1 MG TABLET PO PRN (17:30)
--- NOTE | 2022-03-19 17:30 | NUR ---
PATIENT COMPLIAN OF ANXIETY MEDICATED WITH ATIVAN 1MG X1 WILL CONTINUE TO MONITOR .
[2022-03-19] MEDS: ATORVASTATIN 10 MG TABLET PO SCH (17:31)
[2022-03-19 20:23] VITALS: BP 100/69
[2022-03-19] MEDS: TEMAZEPAM 7.5 MG CAPSULE PO PRN (20:58)
[2022-03-20] MEDS: LORAZEPAM 1 MG TABLET PO PRN (00:12)
[2022-03-20] MEDS: CEPHALEXIN MONOHYDRATE 250 MG CAPSULE PO SCH ×3 (00:18→11:39)
[2022-03-20 08:00] VITALS: BP 119/79
[2022-03-20] MEDS: LEVOTHYROXINE SODIUM 50 MCG TABLET PO SCH (08:19)
[2022-03-20] MEDS: ESCITALOPRAM OXALATE (10 MG) 10 MG TABLET PO SCH (08:26)
[2022-03-20] MEDS: OLANZAPINE 2.5 MG TABLET PO SCH (08:27)
[2022-03-20] MEDS: DIVALPROEX SODIUM 250 MG TABLET.DR PO SCH ×2 (08:27→12:08)
[2022-03-20] MEDS: ISOSORBIDE MONONITRATE (30MG) 30 MG TAB.SR.24H PO SCH (08:27)
[2022-03-20] MEDS: CLOPIDOGREL BISULFATE 75 MG TABLET PO SCH (08:28)
[2022-03-20] MEDS: CARVEDILOL 3.125 MG TABLET PO SCH (08:28)
[2022-03-20 08:31] VITALS: BP 119/79
[2022-03-20] MEDS: AMLODIPINE BESYLATE 5 MG TABLET PO SCH (08:31)
--- NOTE | 2022-03-20 13:15 | NUR ---
RN-DISCHARGE NOTES PATIENT HAD A DISCHARGE ORDER FROM DR. KERN ( PSYCHIATRIST) DR. BURNHAM MEDICALLY CLEARED PATIENT FOR DISCHARGE. PATIENT WAS DISCHARGED TO [facility]. ALL RX MEDICATION WAS REVIEWED WITH THE PATIENT WITH UNDERSTANDING. PATIENT REFUSED FULL BODY ASSESSMENT PRIOR TO DISCHARGE. PATIENT LEFT THE UNIT IN STABLE CONDITION A/O X3 AMBULATORY STEADY GAIT. VITAL SIGN FF: BP 116/68,P70, R 16, TEMP. 98 AND O2 SAT 100% RA. INSTRUCTED PATIENT TO FOLLOW UP WITH PCP IN A WEEK OR NEEDED AND CALL 911 INCASE OF EMERGENCY OR GO TO THE NEAREST EMERGENCY ROOM INCASE OF EMERGENCY .PATIENT LEFT THE UNIT WITH ALL BELONGINGS. PATIENT WAS ASSISTED IN THE LOBBY FOR SAFETY. PATIENT LEFT THE HOSPITAL VIA [facility].ALL RX WAS FAXED TO [facility] @ [phone],TEL.# [phone] RECEIVED AND CONFIRMED BY ALAINA ( PHARMACIES).
== END 2022-03-20 13:15 | DRG 885 ==
LOC: ER 00:16 → GPS 15:48
PROVIDERS: ADMIT Psychiatry & Neurology Psychiatry; ATTEND Internal Medicine
DX: F20.0 Paranoid schizophrenia (principal); R45.851 Suicidal ideations; J45.909 Unspecified asthma, uncomplicated; Z85.528 Personal history of other malignant neoplasm of kidney; F41.9 Anxiety disorder, unspecified; R45.850 Homicidal ideations; E78.5 Hyperlipidemia, unspecified; I10 Essential (primary) hypertension; Z88.6 Allergy status to analgesic agent; Z79.899 Other long term (current) drug therapy; Z91.51 Personal history of suicidal behavior; Z91.81 History of falling; R27.8 Other lack of coordination; Z73.6 Limitation of activities due to disability; G31.84 Mild cognitive impairment of uncertain or unknown etiology; F32.A Depression, unspecified
CPT/HCPCS: 36415; 71045-TC; 80048-TC; 80053-TC; 80061-TC; 80076-TC; 80164-TC; 81001; 84484-TC; 85025-TC; 87081-TC; 87086-TC; C9803; G0480

== ENCOUNTER 2023-05-17 02:28 | Inpatient (IN) | payer MEDICARE, OTHER ==
[~2023-05-17] VITALS: Ht 152.4 cm; Wt 52.2 kg
[~2023-05-17 02:28] MED LIST changes: -BACL10TA PO; +CARV3.122 PO; +CLOP75TA15 PO; -DOCU100C36 PO; -ESCI5TAB PO; -GABA-532 PO; +ISOS30TA86 PO; +LEVO50TA8 PO; -NITR0.4T48 PO; -TRAM50TA2 PO; -ZOLP5TAB8 PO
[2023-05-17 06:14] LABS: BASOPHILS % (AUTO) 0.3 % (0.0-2.0); EOSINOPHILS # (AUTO) 0.3 K/uL (0.0-0.7); EOSINOPHILS % (AUTO) 3.3 % (0.0-6.0); HEMATOCRIT 33 % (33-45); HEMOGLOBIN 10.7 g/dL (11.5-14.8); LYMPHOCYTES # (AUTO) 1.3 K/uL (0.8-4.8); LYMPHOCYTES % (AUTO) 14.7 % (20.0-44.0); MEAN CORPUSCULAR HEMOGLOBIN 30 PG (26.0-33.0); MEAN CORPUSCULAR HGB CONC 32 g/dl (31.0-36.0); MEAN CORPUSCULAR VOLUME 92 fL (82-100); MONOCYTES # (AUTO) 0.9 K/uL (0.1-1.30); MONOCYTES % (AUTO) 9.9 % (2.0-12.0); NEUTROPHILS # (AUTO) 6.5 K/uL (1.8-8.9); NEUTROPHILS % (AUTO) 71.8 % (43.0-81.0); PLATELET COUNT (AUTO) 173 K/uL (150-450); RED BLOOD CELL COUNT(AUTO) 3.63 MIL/uL (4.0-5.2); RED CELL DISTRIBUTION WIDTH 16.1 % (11.5-15.0)
[2023-05-17 06:26] LABS: CALCIUM, SERUM 8.9 mg/dL (8.5-10.1); CARBON DIOXIDE 29 mmol/L (21-32); CHLORIDE 108 mmol/L (98-107); GLUCOSE 104 mg/dL (74-106); POTASSIUM 3.8 mmol/L (3.5-5.1); SODIUM SERUM 142 mmol/L (136-145); UREA NITROGEN, BLOOD 24 mg/dL (7-18)
[2023-05-17 06:32] LABS: ALBUMIN 3.1 g/dL (3.4-5.0); BILIRUBIN,DIRECT 0.1 mg/dL (0.0-0.2); BILIRUBIN,TOTAL 0.2 mg/dL (0.2-1.0); TOTAL PROTEIN, SERUM 6.4 g/dL (6.4-8.2)
[2023-05-17] MEDS ORDERED: ONDANSETRON HCL/PF 4 MG/2 ML VIAL IVP PRN (07:30)
[2023-05-17] MEDS ORDERED: LEVOTHYROXINE SODIUM 50 MCG TABLET ONE (07:52)
[2023-05-17] MEDS: LEVOTHYROXINE SODIUM 50 MCG TABLET PO SCH (07:54)
[2023-05-17] MEDS: ACETAMINOPHEN 325 MG TABLET PO PRN (09:37)
[2023-05-17] MEDS: CLOPIDOGREL BISULFATE 75 MG TABLET PO SCH (09:37)
[2023-05-17] MEDS: CARVEDILOL 3.125 MG TABLET PO SCH ×2 (09:39→18:01)
[2023-05-17] MEDS: ISOSORBIDE MONONITRATE (30MG) 30 MG TAB.SR.24H PO SCH (09:39)
[2023-05-17] MEDS: AMLODIPINE BESYLATE 10 MG TABLET PO SCH (11:39)
[2023-05-17] MEDS: MORPHINE SULFATE INJ 2 MG/ML DISP.SYRIN IM PRN ×3 (15:49→23:53)
[2023-05-17 16:00] VITALS: BP 144/87; TEMP 98.3; O2SAT 95
[2023-05-17] MEDS: ATORVASTATIN 10 MG TABLET PO SCH (18:01)
[2023-05-17 20:00] VITALS: BP 119/86; TEMP 98; O2SAT 96
[2023-05-18] VITALS: BP 136/83; TEMP 98; O2SAT 96
[2023-05-18 04:00] VITALS: BP 147/78; TEMP 98.2; O2SAT 96
[2023-05-18] MEDS: MORPHINE SULFATE INJ 2 MG/ML DISP.SYRIN IM PRN ×4 (05:59→21:57)
[2023-05-18 07:00] VITALS: BP 153/87; TEMP 97.9; O2SAT 95
[2023-05-18] MEDS: LEVOTHYROXINE SODIUM 50 MCG TABLET PO SCH (07:55)
[2023-05-18] MEDS: CARVEDILOL 3.125 MG TABLET PO SCH ×2 (08:38→16:41)
[2023-05-18] MEDS: CLOPIDOGREL BISULFATE 75 MG TABLET PO SCH (08:38)
[2023-05-18] MEDS: ISOSORBIDE MONONITRATE (30MG) 30 MG TAB.SR.24H PO SCH (08:38)
[2023-05-18] MEDS: AMLODIPINE BESYLATE 10 MG TABLET PO SCH (08:39)
[2023-05-18] MEDS ORDERED: ISOS30TA86 PO (12:22)
[2023-05-18 16:00] VITALS: BP 143/86; TEMP 98.7; O2SAT 94
[2023-05-18] MEDS: DIVALPROEX SODIUM 125 MG CAP.SPRINK PO SCH ×2 (16:41→21:18)
[2023-05-18] MEDS: ATORVASTATIN 10 MG TABLET PO SCH (17:13)
[2023-05-18 20:00] VITALS: BP 131/81; TEMP 97.9; O2SAT 94
[2023-05-19 00:30] LABS: BASOPHILS % (AUTO) 0.6 % (0.0-2.0); EOSINOPHILS # (AUTO) 0.1 K/uL (0.0-0.7); EOSINOPHILS % (AUTO) 1.9 % (0.0-6.0); HEMATOCRIT 36 % (33-45); HEMOGLOBIN 11.6 g/dL (11.5-14.8); LYMPHOCYTES # (AUTO) 1.2 K/uL (0.8-4.8); MEAN CORPUSCULAR HEMOGLOBIN 29 PG (26.0-33.0); MEAN CORPUSCULAR HGB CONC 32 g/dl (31.0-36.0); MEAN CORPUSCULAR VOLUME 90 fL (82-100); MONOCYTES # (AUTO) 0.6 K/uL (0.1-1.30); MONOCYTES % (AUTO) 8.4 % (2.0-12.0); NEUTROPHILS # (AUTO) 4.9 K/uL (1.8-8.9); NEUTROPHILS % (AUTO) 71.1 % (43.0-81.0); PLATELET COUNT (AUTO) 218 K/uL (150-450); RED BLOOD CELL COUNT(AUTO) 4.03 MIL/uL (4.0-5.2); RED CELL DISTRIBUTION WIDTH 16.2 % (11.5-15.0); WHITE BLOOD COUNT (AUTO) 6.9 K/uL (4.3-11.0)
[2023-05-19 00:43] LABS: CALCIUM, SERUM 9.1 mg/dL (8.5-10.1); CREATININE 0.8 mg/dL (0.6-1.3); MAGNESIUM 2.2 mg/dL (1.8-2.4); PHOSPHORUS 3.7 mg/dL (2.5-4.9); POTASSIUM 3.9 mmol/L (3.5-5.1)
[2023-05-19] MEDS: MORPHINE SULFATE INJ 2 MG/ML DISP.SYRIN IM PRN ×4 (06:53→21:58)
[2023-05-19 08:00] VITALS: BP_SYST 133; BP_SYST 139; BP_DIAS 72; BP_DIAS 90; TEMP 98.2; TEMP 98.4; O2SAT 96; O2SAT 97
[2023-05-19] MEDS: LEVOTHYROXINE SODIUM 50 MCG TABLET PO SCH (08:21)
[2023-05-19] MEDS: DIVALPROEX SODIUM 125 MG CAP.SPRINK PO SCH ×3 (08:21→21:17)
[2023-05-19] MEDS: CARVEDILOL 3.125 MG TABLET PO SCH ×2 (08:22→17:11)
[2023-05-19] MEDS: ISOSORBIDE MONONITRATE (30MG) 30 MG TAB.SR.24H PO SCH (08:22)
[2023-05-19] MEDS: AMLODIPINE BESYLATE 10 MG TABLET PO SCH (08:22)
[2023-05-19] MEDS: CLOPIDOGREL BISULFATE 75 MG TABLET PO SCH (08:23)
[2023-05-19 16:00] VITALS: BP 117/67; TEMP 98.5; O2SAT 97
[2023-05-19] MEDS: ATORVASTATIN 10 MG TABLET PO SCH (17:10)
[2023-05-19 20:00] VITALS: BP 132/85; TEMP 98; O2SAT 95
[2023-05-20 08:00] VITALS: BP 140/79; TEMP 98.4; O2SAT 100
[2023-05-20] MEDS: LEVOTHYROXINE SODIUM 50 MCG TABLET PO SCH (08:40)
[2023-05-20] MEDS: ACETAMINOPHEN 325 MG TABLET PO PRN (08:41)
[2023-05-20] MEDS: AMLODIPINE BESYLATE 10 MG TABLET PO SCH (08:42)
[2023-05-20] MEDS: CLOPIDOGREL BISULFATE 75 MG TABLET PO SCH (08:42)
[2023-05-20] MEDS: CARVEDILOL 3.125 MG TABLET PO SCH (08:43)
[2023-05-20] MEDS: ISOSORBIDE MONONITRATE (30MG) 30 MG TAB.SR.24H PO SCH (08:43)
[2023-05-20] MEDS: DIVALPROEX SODIUM 125 MG CAP.SPRINK PO SCH (08:43)
[2023-05-20] MEDS: MORPHINE SULFATE INJ 2 MG/ML DISP.SYRIN IM PRN (10:47)
[2023-05-20] MEDS ORDERED: oxyCODONE IR immediate release 5 MG PO STA (12:20)
[2023-05-20 16:00] VITALS: BP 115/73; TEMP 98.4; O2SAT 98
== END 2023-05-20 16:42 | DRG 303 ==
LOC: ER 02:30 → TELE 08:23 → MED 05-18 16:01
PROVIDERS: ADMIT Internal Medicine; ATTEND Internal Medicine
DX: I25.110 Atherosclerotic heart disease of native coronary artery with unstable angina pectoris (principal); Z95.5 Presence of coronary angioplasty implant and graft; F31.9 Bipolar disorder, unspecified; F20.9 Schizophrenia, unspecified; I10 Essential (primary) hypertension; Z59.00 Homelessness unspecified; E03.9 Hypothyroidism, unspecified; E78.5 Hyperlipidemia, unspecified; Z85.528 Personal history of other malignant neoplasm of kidney; Z79.02 Long term (current) use of antithrombotics/antiplatelets; Z88.6 Allergy status to analgesic agent; Z79.899 Other long term (current) drug therapy; Z98.82 Breast implant status
CPT/HCPCS: 36415; 71045-TC; 80048-TC; 80061-TC; 80076-TC; 83735-TC; 84100-TC; 84443-TC; 84484-TC; 85025-TC; 87081-TC; 93307-TC; G0378; J2270